=== PATIENT | female | born 1950 | race Caucasian/White ===

== ENCOUNTER → 2018-08-20 06:30 | Outpatient (CLI) | payer MEDICARE, OTHER, SELFPAY ==
[2016-08-10 11:42] VITALS: BMI 30.7
[2018-08-09 10:48] VITALS: BMI 27.4
--- NOTE | 2018-08-20 19:04 | STRESSREP ---
Stress Test Report Exercise myocardial perfusion stress test. 68-year-old lady with a history of coronary artery disease. Medications: Aspirin, Plavix, metoprolol, atorvastatin. Stress protocol: Resting EKG demonstrates normal sinus rhythm with a rate of 62 bpm normal intervals are noted resting blood pressure 160/82 mmHg. Patient exercised according to regular Anthony protocol for total duration of 6 minutes. The maximum heart rate attained was 150 bpm which was 100% of maximum predicted heart rate the maximum workload was 7 metabolic equivalents. At rest there were nonspecific ST-T wave changes noted at peak exercise upsloping ST changes only were noted with no meet the criteria for ischemia. Occasional premature atrial complexes were noted. During recovery there was noted to be mildly downsloping ST depression noted in leads II, III and aVF with mild ST elevation noted in lead aVR no chest pain was noted. The resting blood pressure was 160/82 with a peak blood pressure of 198/76. Rate pressure product was 29,700. No clinical angina was noted. Myocardial perfusion protocol. 11.6 mCi of technetium 99m sestamibi was injected at rest. The patient exercised for total duration of 6 minutes attaining 7 metabolic equivalents. At peak exercise 34.3 mCi of technetium 99m sestamibi was injected stress images were obtained stress and rest images were reconstructed and compared in the short axis vertical long horizontal long axis. Gated images were also obtained Perfusion SPECT analysis: Review of the stress images demonstrate normal uptake of tracer noted in all areas of the myocardium. The resting images similarly demonstrate normal uptake of tracer noted in all areas of the myocardium. No reversibility is noted to suggest ischemia. Gated SPECT analysis: Gated ejection fraction is noted to be 81%. Conclusion: Normal exercise myocardial perfusion stress test at a moderate workload. Preserved ejection fraction
== END ==
PROVIDERS: Family Provider Family Medicine; PCP Family Medicine; Referring Provider Internal Medicine Cardiovascular Disease; Visit Provider Internal Medicine Cardiovascular Disease
DX: I25.10 Atherosclerotic heart disease of native coronary artery without angina pectoris (principal); Z95.820 Peripheral vascular angioplasty status with implants and grafts
CPT/HCPCS: 78452; 93017; A9500; A4216

== ENCOUNTER → 2020-10-20 | Outpatient (CLI) | payer MEDICARE, OTHER, SELFPAY ==
[2016-08-10 11:42] VITALS: BMI 30.7
[2020-10-20 07:37] VITALS: BMI 24.7
[2020-10-20 11:52] LABS: AST(SGOT) 22 U/L (15-37); Alanine Aminotransfer ALT/SGPT 22 U/L (13-56); Albumin, Serum 3.8 g/dL (3.2-5.0); Alkaline Phosphatase 84 U/L (45-117); Bilirubin, Direct 0.23 mg/dL (0.00-0.30); Cholesterol 142 mg/dL (200); Globulin 3.3 g/dL (2.2-4.2); High Density Lipoprotein 65 mg/dL; Protein, Total 7.1 g/dL (6.4-8.2); Triglycerides 101 mg/dL; Very Low Density Lipoprotein 20 mg/dL (5-40)
== END | disposition home or self-care (01) ==
LOC: LABSPEC 11:09
PROVIDERS: PCP Family Medicine; Visit Provider Internal Medicine Cardiovascular Disease
DX: E78.00 Pure hypercholesterolemia, unspecified (principal)
CPT/HCPCS: 36415; 80061; 80076

== ENCOUNTER → 2020-12-09 09:33 | Outpatient (CLI) | payer MEDICARE, OTHER, SELFPAY ==
[2020-10-23 10:09] VITALS: BMI 30.7
[2020-12-09 09:00] VITALS: BMI 25.0
[2020-12-09 12:14] LABS: Absolute Lymphocyte Count 0.96 X10^3/uL (0.83-4.51); Absolute Neutrophil Count 4.3 X10^3/uL (2.0-7.7); Basophil# 0.05 X10^3/uL; Basophil% 0.8 % (0-1); Eosinophil# 0.14 X10^3/uL; Eosinophils% 2.3 % (0-5); Hematocrit 44.1 % (37-47); Hemoglobin 13.6 g/dL (12.0-15.0); Lymphocyte # 0.96 X10^3/ul (0.83-4.51); Lymphocyte % 15.9 % (19-41); Mean Corp Hgb Conc 30.8 g/dL (32-36); Mean Corpuscular Hgb 29.6 pg (27.0-32.0); Mean Corpuscular Volume 95.9 fL (81-99); Mean Platelet Vol. 10.7 fl (6.2-12.0); Monocyte# 0.54 X10^3/uL; Monocyte% 8.9 % (0-10); NRBC Flagged by Analyzer 0 % (0-5); Neutrophil # 4.33 X10^3/uL (2.7-7.7); Neutrophil % 71.8 % (47-70); Platelet Count 261 K/mm3 (150-450); RBC Distribution Width CV 13.1 % (11.6-14.6); RBC Distribution Width SD 46.5 fl (35.1-43.9)
[2020-12-09 12:30] LABS: Anion Gap 4 (5-15); BUN 20 mg/dL (7-18); BUN/Creat Ratio 25.7 RATIO (10-20); Calcium,Total 9.3 mg/dL (8.5-10.1); Chloride 107 mmol/L (98-107); Creatinine, Serum 0.78 mg/dL (0.55-1.02); EST Glomerular Filtration Rate 77 mL/min (>60); Est Glom Filt Rate - Afr Amer 93 mL/min (>60); Glucose 80 mg/dL (74-106); Potassium 4.4 mmol/L (3.5-5.1); Sodium Level 142 mmol/L (136-145)
== END ==
PROVIDERS: PCP Internal Medicine; Referring Provider Internal Medicine; Visit Provider Internal Medicine
DX: E78.2 Mixed hyperlipidemia (principal)
CPT/HCPCS: 36415; 80048; 85025

== ENCOUNTER → 2021-04-14 09:32 | Outpatient (CLI) | payer MEDICARE, OTHER, SELFPAY ==
[2020-10-23 10:09] VITALS: BMI 30.7
[2020-12-09 09:00] VITALS: BMI 25.0
--- NOTE | 2021-04-14 09:36 | BI_ITS ---
MAMMOGRAPHY - BILATERAL SCREENING REASON FOR EXAM: Female, 70 years old. Routine annual screening examination. PERTINENT HISTORY: Non-contributory. TECHNIQUE: Digital bilateral breast veronica (3D mammographic acquisition) in the CC and MLO projections. 2-D mediolateral oblique (MLO) and craniocaudad (CC) views of both breasts were obtained. CAD: Full Field Digital Mammography with Computer Added Detection was performed. COMPARISON: Comparison is made with prior examination of 04/13/2020. FINDINGS: Breast Composition: There are scattered areas of fibroglandular density. There are no dominant masses or suspicious calcifications. No other significant abnormalities are identified. There has been no significant change since the prior study. BI/SCRN MAMM (CAD)W/VERONICA BILAT IMPRESSION: Stable bilateral screening mammogram. Yearly follow-up mammogram recommended. (A) ASSESSMENT CATEGORY: BIRADS Category 1: Negative. A letter regarding these results will be sent to the patient by the facility within 30 days. Approximately 10% of breast cancers are not detected by mammography. A normal mammogram should not delay biopsy of a clinically suspicious abnormality. [id number] Electronically Signed: Amrik Dhillon MD at 10:23 EST , Service support ,
--- NOTE | 2021-04-14 09:55 | BD_ITS ---
STUDY: DUAL ENERGY X-RAY ABSORPTIOMETRY / DXA REASON FOR EXAM: Female, 70 years old. Post menopausal TECHNIQUE: Bone Mineral Density (BMD) measurements of lumbar spine and left hip were obtained. COMPARISON: None. FINDINGS: Lumbar Spine (L1-L4): g/cm2 (0.795) / T-score (-2.0) / Z-score (0.2) Findings are suggestive of osteopenia with a moderate fracture risk. Left Femur Total: g/cm2 (0.682) / T-score (-2.1) / Z-score (-0.5) Left Femoral Neck: g/cm2 (0.568) / T-score (-2.5) / Z-score (-0.6) BD/Dexa Bone Density Study IMPRESSION: The patient is considered osteopenic as outlined below according to World [employer] Organization (WHO) criteria with a high fracture risk. Reference Information: The T-score is the number of standard deviations above or below the standard which is normal for young adults at their peak bone mineral density. The World Health Organization (WHO) interprets the T-scores as follows: Above -1 Normal bone density Between -1 and -2.5 Osteopenia Equal to / or below -2.5 Osteoporosis As a practical clinical guideline, osteopenia may be graded as follows: Mild -1 through -1.5 Moderate -1.6 through -2.0 Severe -2.1 through -2.4 The Z-score is the number of standard deviations above or below age-matched controls. A Z-score of less than -1.5 would be considered abnormal. References: 1. NIH Osteoporosis and Related Bone Diseases www osteo.org 2. International Society for Clinical Densitometry www iscd.org 3. National Osteoporosis Foundation www nof.org Electronically Signed: Amrik Dhillon MD at 14:39 EST , Service support ,
== END ==
PROVIDERS: PCP Internal Medicine; Referring Provider Internal Medicine; Visit Provider Internal Medicine
DX: Z12.31 Encounter for screening mammogram for malignant neoplasm of breast (principal); Z78.0 Asymptomatic menopausal state; M85.80 Other specified disorders of bone density and structure, unspecified site
CPT/HCPCS: 77063; 77067; 77080

== ENCOUNTER → 2021-05-27 | Outpatient (CLI) | payer MEDICARE, OTHER, SELFPAY ==
[2020-10-23 10:09] VITALS: BMI 30.7
== END | disposition home or self-care (01) ==
PROVIDERS: PCP Internal Medicine; Visit Provider Nurse Practitioner Family
DX: U07.1 COVID-19 (principal)
CPT/HCPCS: 87635; U0003; U0005

== ENCOUNTER 2021-08-25 10:20 | Outpatient (CLI) | payer MEDICARE, OTHER, SELFPAY ==
[2020-10-23 10:09] VITALS: BMI 30.7
[2021-08-25 12:31] LABS: AST(SGOT) 21 U/L (15-37); Alanine Aminotransfer ALT/SGPT 26 U/L (13-56); Albumin, Serum 3.9 g/dL (3.2-5.0); Alkaline Phosphatase 88 U/L (45-117); Bilirubin, Direct 0.26 mg/dL (0.00-0.30); Cholesterol 133 mg/dL (200); Globulin 3.4 g/dL (2.2-4.2); High Density Lipoprotein 58 mg/dL; Protein, Total 7.3 g/dL (6.4-8.2); Triglycerides 61 mg/dL; Very Low Density Lipoprotein 12 mg/dL (5-40)
== END 2021-08-25 23:59 | disposition home or self-care (01) ==
LOC: BIMLAB 10:24
PROVIDERS: PCP Internal Medicine; Referring Provider Internal Medicine Cardiovascular Disease; Visit Provider Internal Medicine Cardiovascular Disease
DX: E78.00 Pure hypercholesterolemia, unspecified (principal); E78.2 Mixed hyperlipidemia
CPT/HCPCS: 36415; 80061; 80076

== ENCOUNTER 2021-08-31 10:26 | Outpatient (CLI) | payer MEDICARE, OTHER, SELFPAY ==
[2020-10-23 10:09] VITALS: BMI 30.7
[2021-08-31 12:34] LABS: Vitamin D,25 Hydroxy 54.4 ng/mL
[2021-08-31 12:39] LABS: Anion Gap 2 (5-15); BUN 16 mg/dL (7-18); BUN/Creat Ratio 21.1 RATIO (10-20); Calcium,Total 9.8 mg/dL (8.5-10.1); Chloride 110 mmol/L (98-107); Creatinine, Serum 0.76 mg/dL (0.55-1.02); EST Glomerular Filtration Rate 80 mL/min (>60); Est Glom Filt Rate - Afr Amer 96 mL/min (>60); Glucose 93 mg/dL (74-106); Potassium 4.4 mmol/L (3.5-5.1); Sodium Level 141 mmol/L (136-145)
== END 2021-08-31 23:59 | disposition home or self-care (01) ==
LOC: BIMLAB 10:27
PROVIDERS: PCP Internal Medicine; Referring Provider Internal Medicine; Visit Provider Internal Medicine
DX: M85.80 Other specified disorders of bone density and structure, unspecified site (principal)
CPT/HCPCS: 36415; 80048; 82306

== ENCOUNTER 2022-05-09 11:54 | Emergency (ER) | payer MEDICARE, OTHER, SELFPAY ==
[2020-10-23 10:09] VITALS: BMI 30.7
[2022-05-09 11:55] VITALS: BP 156/112; PULSE 72; RESP 18; TEMP 36.4; O2SAT 96; BMI 26.6
[2022-05-09 12:29] VITALS: BP 152/83; PULSE 64; RESP 16; O2SAT 95
--- NOTE | 2022-05-09 12:57 | EDS_ITS ---
HPI History of Present Illness Chief Complaint: Chest Pain Informant: patient Onset/Context/Timing Onset: Days (5) Activity at onset: gradual Timing: Continuous Quality: Positive for Aching Location: Substernal and Right Chest Worsened By: Movement of Torso and Coughing Relieved By: Nothing Associated Symptoms: Positive for Diaphoresis, Cough, Fever and Lightheadedness; Negative for Nausea, Vomiting, Dyspnea, Acid Reflux or Palpitations Narrative Narrative: Presents with right-sided chest pain that began 5 days ago. Patient describes the pain as aching. Patient states pain is over the right side of her chest and into her back. Patient states it is worse with coughing and movement. Patient states nothing seems to help with it. Patient states she woke up in a sweat today. Patient admits to a recent cough. Patient states she has had a fever couple days ago but denies any fevers currently. Patient also admits to some lightheadedness a few days ago but currently denies any lightheadedness. Patient denies any nausea or vomiting. Patient denies any palpitations or reflux symptoms. CVD Risk Factors: Positive for Hypercholesterolemia and Family History 1' </=55; Negative for Hypertension, Diabetes or Smoking PE Risk Factors: Negative for Recent Travel/Surgery, Recent Immobilization, Prior DVT or PE, Cancer or OCP + Smoking + >/=35 PFSH PFSH Medical History Atherosclerotic heart disease of [place] coronary artery without angina pectoris Coronary artery disease Female stress incontinence Health care maintenance Hyperlipidemia Hypertension Osteoarthritis of left knee Osteopenia Vaginal vault prolapse after hysterectomy Home Medications calcium carbonate 600 mg-vitamin D3 5 mcg (200 unit) tablet 1 ea PO BID 07/26/16 [History Last Taken Unknown] acetaminophen 500 mg tablet 1,000 mg PO Q8 PRN Pain 08/10/17 [History Last Taken Unknown] aspirin 81 mg tablet,delayed release 81 mg PO DAILY 10/15/19 [History Last Taken Unknown] atorvastatin 80 mg tablet 80 mg PO QHS #90 tabs 06/14/21 [Rx Last Taken Unknown] clopidogrel 75 mg tablet 75 mg PO DAILY #90 tabs 06/14/21 [Rx Last Taken Unknown] metoprolol tartrate 25 mg tablet 25 mg PO BID #180 tabs 06/14/21 [Rx Last Taken Unknown] Allergy/AdvReac Type Severity Reaction Status Date / Time No Known Allergies Allergy Verified 05/09/22 11:55 Family History Father CAD (coronary artery disease) CVA (cerebral vascular accident) Surgical History History of coronary artery stent placement (07/30/16) History of hysterectomy History of left knee replacement Hx of cataract surgery Social History Smoking Status: Never smoker alcohol intake: never substance use type: does not use caffeine: Yes Type: coffee Number of servings: 2 what type of physical activity do you participate in: walking frequency: 3-4 times per week duration: 30-45 minutes/day seatbelt use: always do you feel safe at home: Yes ROS ROS ED Constitutional Constitutional ED: Denies chills or fever(s) Eyes Eyes: Denies blurry vision or change in vision ENT ENT ED: Denies rhinorrhea or sore throat Cardiovascular Cardiovascular: Reports chest pain; Denies palpitations Respiratory/Chest Respiratory/Chest: Reports cough; Denies dyspnea Gastrointestinal Gastrointestinal: Denies abdominal pain, nausea or vomiting Genitourinary Genitourinary ED: Denies dysuria or hematuria Musculoskeletal Musculoskeletal: Reports back pain; Denies neck pain Integumentary Denies abscess or rash Neurologic Neurologic: Reports headache(s); Denies weakness Allergic/Immunologic Allergic/Immunologic ED: Denies mouth swelling or urticaria EXAM Physical Exam Const Vital Signs: 05/09/22 11:55 05/09/22 12:29 05/09/22 12:29 Temperature 97.6 F L Temperature Source Temporal Pulse Rate 72 64 Respiratory Rate 18 16 Respiratory Effort Normal Blood Pressure 156/112 H 152/83 H Blood Pressure Mean 126 106 Pulse Ox 96 95 Oxygen Delivery Method Room Air Room Air 05/09/22 13:28 05/09/22 14:05 Temperature Temperature Source Pulse Rate 54 L Respiratory Rate 20 H Respiratory Effort Blood Pressure 133/76 H Blood Pressure Mean 95 Pulse Ox 92 Oxygen Delivery Method Room Air Room Air Positive well nourished and well developed General Appearance ED: well developed and NAD HEENT normocephalic and atraumatic Eyes PERRL and EOMs intact bilaterally Neck supple and no JVD Chest Wall palpation of chest normal Resp normal respiratory effort and clear to auscultation bilaterally Effort and Inspection: Negative for respiratory distress Cardio regular rate, regular rhythm and no murmurs GI normal to inspection, nondistended, normoactive bowel sounds, soft to palpation, non-tender and non-distended Extremity normal to inspection General Extremety ED: Negative for edema or tenderness General Extremity: Negative for edema Neuro oriented x3, CN's II-XII intact bilaterally and no sensory deficits noted Sensorium / Orientation: awake and alert Motor Exam: strength 5/5 throughout Psych mental status grossly normal Heart Score History: Slightly/Non-Suspicious ECG: Nonspecific Repolarization Age: >/= 65 years Risk Factors: >/= 3 Risk Factors or History of CAD Troponin: </= Normal Limit Score: 5 MDM MDM MDM Narrative Medical decision making narrative: Patient was given aspirin here. EKG was obtained. On my interpretation, it showed a normal sinus rhythm with a rate of 63. IA interval, QRS interval, and QTc intervals were all normal. [place] was normal. There are nonspecific ST-T wave changes. Portable 1 view chest x-ray was obtained. On my interpretation, lung rolon are clear. There is normal cardiac silhouette. Bony thorax is normal. There is no acute process noted. Radiologist also interpreted the x- ray and agrees. CBC was within normal limits. Basic metabolic profile was within normal limits. High-sensitivity troponin was normal at 13. Patient was advised of her findings. Patient was instructed to follow-up with her primary care physician in 5 to 7 days for further evaluation. Patient understood and was agreeable with the plan. All questions were answered. Lab Data Labs: Laboratory Results - last 24 hr 05/09/22 05/09/22 13:23 13:23 WBC 4.0 L RBC 4.64 Hgb 13.8 Hct 44.1 MCV 95.0 MCH 29.7 MCHC 31.3 L RDW Std Deviation 46.9 H RDW Coeff of Gerhard 13.3 Plt Count 209 MPV 10.3 Immature Gran % (Auto) 0.300 Neut % (Auto) 63.6 Lymph % (Auto) 21.8 [place] % (Auto) 13.0 H Eos % (Auto) 0.8 Baso % (Auto) 0.5 Absolute Neuts (auto) 2.6 Absolute Lymphs (auto) 0.87 Nucleated RBC % 0 Sodium 140 Potassium 4.2 Chloride 104 Carbon Dioxide 32.0 Anion Gap 4 L BUN 11 Creatinine 0.77 Estim Creat Clear Calc 42.62 Est GFR (MDRD) Af Amer 95 Est GFR (MDRD) Non-Af 78 BUN/Creatinine Ratio 14.3 Glucose 96 Calcium 9.6 Troponin I High Sens 13 Radiography Diagnostic Testing: Clinical Impression(s) from Imaging Studies Chest X-Ray 05/09/22 13:04 IMPRESSION: Hyperinflation. The lungs are clear. Electronically Signed: Amrik Dhillon MD at 14:15 EST , EKG Initial EKG: Attestation: I personally reviewed and interpreted this EKG as follows: Interpretation: Sinus Rhythm (63) and Non-Specific ST Changes Prior EKG tracings: available for review Prior: Unchanged (08/20/2018) Discharge Plan Triage Chief Complaint: Chest Pain Other Complaint: General Illness ED Provider: Marlon Waddell Dx/Rx/DC Orders Clinical Impression: Right-sided chest pain, Hypertension Instructions: ED Chest Pain, Uncertain Cause Prescriptions: No Action acetaminophen 500 MG tablet 1,000 mg PO Q8 PRN (Reason: Pain) aspirin 81 mg tablet,delayed release (DR/EC) 81 mg PO DAILY calcium carbonate-vitamin D3 1 EACH tablet 1 ea PO BID metoprolol tartrate 25 mg tablet 25 mg PO BID Qty: 180 3RF atorvastatin 80 mg tablet 80 mg PO QHS Qty: 90 3RF clopidogrel 75 mg tablet 75 mg PO DAILY Qty: 90 3RF Primary Care Provider: Skip Lugo Referrals: Skip Lugo MD [Primary Care Provider] - 5-7 Days Disposition Disposition: Home, Self Care
--- NOTE | 2022-05-09 13:04 | RAD_ITS ---
STUDY: X-RAY CHEST REASON FOR EXAM: Female, 72 years old. Cough and fever. Chest pain. TECHNIQUE: Single AP portable view of the chest. COMPARISON: None. FINDINGS: EKG electrodes are seen. Hyperinflation. The lungs are clear. There is no demonstrated pleural abnormality. Normal size heart. Normal mediastinum and tarik. Normal visualized pulmonary arteries. There is atherosclerotic calcification of the aortic arch with tortuosity. There are diffuse degenerative changes of the visualized thoracic spine. There is degenerative osteoarthritis of the bilateral shoulders. There is no demonstrated abnormality of the visualized soft tissue structures of the upper abdomen. RAD/Chest 1 View (Portable) IMPRESSION: Hyperinflation. The lungs are clear. Electronically Signed: Amrik Dhillon MD at 14:15 EST ,
--- NOTE | 2022-05-09 13:15 | EKG12_ITS ---
Test Reason : cp Blood Pressure : / mmHG Vent. Rate : 063 BPM Atrial Rate : 063 BPM P-R Int : 140 ms QRS Dur : 084 ms QT Int : 382 ms P-R-T Axes : 050 -07 -23 degrees QTc Int : 390 ms Sinus rhythm with Premature atrial complexes Nonspecific ST and T wave abnormality Abnormal ECG Confirmed by FABIANO TRISTAN, GARO ([id number]), news editor DIONY MANUEL ([id number]) on 05/11/2022 11:11:29 AM Referred By: Confirmed By:GARO MARIO MD
[2022-05-09] MEDS: Aspirin 81 MG TAB.CHEW 324 MG PO (13:26)
[2022-05-09 13:28] LABS: Absolute Lymphocyte Count 0.87 X10^3/uL (0.83-4.51); Absolute Neutrophil Count 2.6 X10^3/uL (2.0-7.7); Basophil# 0.02 X10^3/uL; Basophil% 0.5 % (0-1); Eosinophil# 0.03 X10^3/uL; Eosinophils% 0.8 % (0-5); Hematocrit 44.1 % (37-47); Hemoglobin 13.8 g/dL (12.0-15.0); Lymphocyte # 0.87 X10^3/ul (0.83-4.51); Lymphocyte % 21.8 % (19-41); Mean Corp Hgb Conc 31.3 g/dL (32-36); Mean Corpuscular Hgb 29.7 pg (27.0-32.0); Mean Platelet Vol. 10.3 fl (6.2-12.0); Monocyte# 0.52 X10^3/uL; NRBC Flagged by Analyzer 0 % (0-5); Neutrophil # 2.55 X10^3/uL (2.7-7.7); Neutrophil % 63.6 % (47-70); Platelet Count 209 K/mm3 (150-450); RBC Distribution Width CV 13.3 % (11.6-14.6); RBC Distribution Width SD 46.9 fl (35.1-43.9); Red Blood Count 4.64 M/mm3 (4.2-5.4)
[2022-05-09 13:47] LABS: Anion Gap 4 (5-15); BUN 11 mg/dL (7-18); BUN/Creat Ratio 14.3 RATIO (10-20); Calcium,Total 9.6 mg/dL (8.5-10.1); Chloride 104 mmol/L (98-107); Creatinine, Serum 0.77 mg/dL (0.55-1.02); EST Glomerular Filtration Rate 78 mL/min (>60); Est Glom Filt Rate - Afr Amer 95 mL/min (>60); Estimated Creatinine Clearance 42.62 ml/min; Glucose 96 mg/dL (74-106); Potassium 4.2 mmol/L (3.5-5.1); Sodium Level 140 mmol/L (136-145); Troponin-I HS 13 pg/mL (3.0-54.0)
[2022-05-09 14:05] VITALS: BP 133/76; PULSE 54; RESP 20; O2SAT 92
[2022-05-09 15:29] VITALS: PULSE 69; RESP 16; O2SAT 98
== END 2022-05-09 15:29 | disposition home or self-care (01) ==
PROVIDERS: Emergency Provider Emergency Medicine; PCP Internal Medicine; Visit Provider Emergency Medicine
DX: R07.9 Chest pain, unspecified (principal); I10 Essential (primary) hypertension; I25.10 Atherosclerotic heart disease of native coronary artery without angina pectoris; Z79.82 Long term (current) use of aspirin; Z79.899 Other long term (current) drug therapy; Z95.5 Presence of coronary angioplasty implant and graft
CPT/HCPCS: 71045; 80048; 84484; 85025; 93005; 99285; A4216

== ENCOUNTER → 2022-09-14 | Outpatient (CLI) | payer MEDICARE, OTHER, SELFPAY ==
[2020-10-23 10:09] VITALS: BMI 30.7
[2022-09-14 12:44] LABS: Absolute Lymphocyte Count 0.98 X10^3/uL (0.83-4.51); Absolute Neutrophil Count 3.8 X10^3/uL (2.0-7.7); Basophil# 0.06 X10^3/uL; Basophil% 1.1 % (0-1); Eosinophil# 0.09 X10^3/uL; Eosinophils% 1.7 % (0-5); Lymphocyte # 0.98 X10^3/ul (0.83-4.51); Lymphocyte % 18.2 % (19-41); Mean Corp Hgb Conc 31.1 g/dL (32-36); Mean Corpuscular Hgb 30.1 pg (27.0-32.0); Mean Corpuscular Volume 96.8 fL (81-99); Mean Platelet Vol. 11.1 fl (6.2-12.0); Monocyte# 0.43 X10^3/uL; NRBC Flagged by Analyzer 0 % (0-5); Neutrophil % 70.6 % (47-70); Platelet Count 258 K/mm3 (150-450); RBC Distribution Width CV 13.3 % (11.6-14.6); RBC Distribution Width SD 47.3 fl (35.1-43.9); Red Blood Count 4.65 M/mm3 (4.2-5.4); White Blood Count 5.4 K/mm3 (4.4-11.0)
[2022-09-14 13:09] LABS: AST(SGOT) 25 U/L (15-37); Alanine Aminotransfer ALT/SGPT 26 U/L (13-56); Albumin, Serum 3.9 g/dL (3.2-5.0); Alkaline Phosphatase 84 U/L (45-117); Bilirubin, Direct 0.26 mg/dL (0.00-0.30); Cholesterol 143 mg/dL (200); Globulin 3.3 g/dL (2.2-4.2); High Density Lipoprotein 56 mg/dL; Protein, Total 7.2 g/dL (6.4-8.2); Triglycerides 70 mg/dL; Very Low Density Lipoprotein 14 mg/dL (5-40)
[2022-09-14 13:15] LABS: Vitamin D,25 Hydroxy 52.4 ng/mL
[2022-09-14 13:19] LABS: Anion Gap 3 (5-15); BUN 18 mg/dL (7-18); Chloride 106 mmol/L (98-107); Creatinine, Serum 0.82 mg/dL (0.55-1.02); EST Glomerular Filtration Rate 73 mL/min (>60); Est Glom Filt Rate - Afr Amer 88 mL/min (>60); Glucose 85 mg/dL (74-106); Potassium 4.5 mmol/L (3.5-5.1); Sodium Level 140 mmol/L (136-145)
== END | disposition home or self-care (01) ==
LOC: BIMLAB 09:06
PROVIDERS: Nurse Practitioner Gerontology; PCP Internal Medicine; Referring Provider Internal Medicine; Visit Provider Internal Medicine
DX: I10 Essential (primary) hypertension (principal); E78.2 Mixed hyperlipidemia; I25.10 Atherosclerotic heart disease of native coronary artery without angina pectoris; M85.80 Other specified disorders of bone density and structure, unspecified site
CPT/HCPCS: 36415; 80048; 80061; 80076; 82306; 85025

== ENCOUNTER → 2022-09-28 | Outpatient (CLI) | payer MEDICARE, OTHER, SELFPAY ==
[2020-10-23 10:09] VITALS: BMI 30.7
--- NOTE | 2022-09-28 09:40 | BI_ITS ---
MAMMOGRAPHY - BILATERAL SCREENING REASON FOR EXAM: Female, 72 years old. Routine annual screening examination. PERTINENT HISTORY: Non-contributory. TECHNIQUE: Digital bilateral breast veronica (3D mammographic acquisition) in the CC and MLO projections. 2-D mediolateral oblique (MLO) and craniocaudad (CC) views of both breasts were obtained. CAD: Full Field Digital Mammography with Computer Added Detection was performed. COMPARISON: Comparison is made with prior examination dated April 14, 2021. FINDINGS: Breast Composition: There are scattered areas of fibroglandular density. There are no dominant masses or suspicious calcifications. No other significant abnormalities are identified. There has been no significant change since the prior study. BI/SCRN MAMM (CAD)W/VERONICA BILAT IMPRESSION: Stable bilateral screening mammogram. Yearly follow-up mammogram recommended. (A) ASSESSMENT CATEGORY: BIRADS Category 1: Negative. A letter regarding these results will be sent to the patient by the facility within 30 days. Approximately 10% of breast cancers are not detected by mammography. A normal mammogram should not delay biopsy of a clinically suspicious abnormality. [id number] Electronically Signed: Amrik Dhillon MD at 10:46 EDT ,
== END | disposition home or self-care (01) ==
LOC: OPBI 09:39
PROVIDERS: PCP Internal Medicine; Referring Provider Internal Medicine; Visit Provider Internal Medicine
DX: Z12.31 Encounter for screening mammogram for malignant neoplasm of breast (principal)
CPT/HCPCS: 77063; 77067

== ENCOUNTER → 2022-10-20 | Outpatient (CLI) | payer MEDICARE, OTHER, SELFPAY ==
[2020-10-23 10:09] VITALS: BMI 30.7
--- NOTE | 2022-10-20 12:44 | ECHOCS_ITS ---
Reason For Study: Murmur Procedure This was a 2D Doppler, Color Flow transthoracic echocardiogram. The study was technically difficult. Contrast injection was performed. Exam performed in department. Left Ventricle Normal LV size. Left ventricular systolic function is normal. The estimated ejection fraction is 65 %. No regional wall motion abnormalities noted. Right Ventricle Normal RV size. Normal systolic function. Atria Normal left atrium. Normal right atrium. Mitral Valve Normal mitral valve. Tricuspid Valve Normal tricuspid valve. Mild tricuspid valve insufficiency. Pulmonary artery systolic pressure is 30 mmHg. Aortic Valve The aortic valve is not well visualized. Pulmonic Valve Normal pulmonic valve. Great Vessels Normal aortic root. The pulmonary artery is normal size. Normal inferior vena cava. Pericardium/Pleural No pericardial effusion. Medication 22 gauge I.V. with prn adaptor inserted into right arm. Diluted definity 1.5ml given slow IV push to enhance endocardial definition. MMode/2D Measurements & Calculations LVIDd: 4.1 cm IVSd: 1.3 cm Ao root diam: 3.6 cm LVIDs: 2.6 cm LVPWd: 0.99 cm LA dimension: 4.4 cm FS: 38.1 % LAV(MOD-sp4): 76.4 ml LA A4 area: 23.6 cm2 Time Measurements MV dec time: 0.16 sec Doppler Measurements & Calculations MV E max flash: 53.0 cm/sec Lat Peak E' Flash: 6.0 cm/sec Med Peak E' Flash: 5.7 cm/sec MV A max flash: 54.8 cm/sec E/E' lat: 8.9 E/E' med: 9.3 MV E/A: 0.97 MV V2 max: 83.4 cm/sec MV P1/2t max flash: 85.7 cm/sec Ao V2 max: 108.1 cm/sec MV max P.8 mmHg MV P1/2t: 66.8 msec Ao max P.7 mmHg MV V2 mean: 31.1 cm/sec MV dec slope: 375.6 cm/sec2 Ao V2 mean: 73.5 cm/sec MV mean P.53 mmHg Ao mean P.5 mmHg MV V2 VTI: 25.6 cm MVA(P1/2t): 3.3 cm2 Ao V2 VTI: 24.8 cm AV (velocity ratio): 0.93 LV V1 max: 92.4 cm/sec PA V2 max: 85.2 cm/sec TR max flash: 264.0 cm/sec LV V1 max P.4 mmHg PA V2 mean: 57.6 cm/sec TR max P.9 mmHg LV V1 mean P.8 mmHg LV V1 mean: 62.3 cm/sec LV V1 VTI: 23.0 cm ECHO/Echo Complete W/ Contrast Interpretation Summary Normal LV size. Left ventricular systolic function is normal. The estimated ejection fraction is 65 %. Pulmonary artery systolic pressure is 30 mmHg. Contrast injection was performed. Ordering Physician: Jazmine Roberts Referring Physician: Skip Lugo Performed By: Sam Carmona RCS
== END | disposition home or self-care (01) ==
PROVIDERS: PCP Internal Medicine; Referring Provider Nurse Practitioner Gerontology; Visit Provider Nurse Practitioner Gerontology
DX: R01.1 Cardiac murmur, unspecified (principal)
CPT/HCPCS: 93306; Q9957; A4216; C8929

== ENCOUNTER 2023-01-31 06:16 | Day surgery (SDC) | payer MEDICARE, OTHER, SELFPAY ==
[2020-10-23 10:09] VITALS: BMI 30.7
--- NOTE | 2023-01-31 | COLBX_PTH ---
PATIENT: KING BLANCO LOC: EN U#:[id number] AGE/SX: 72/F ROOM: RE01/31/[address]: Dr. Daniel Mata MD : [id number] BED: DIS: 01/31/2023 SPEC #: [id number] RECD: 01/31/23 11:47 STATUS: WILLY REKelsey #: [id number] CARLOS: 01/31/23 00:[address]: Daniel Mata DEPT: SURGICAL PATHOLOGY RECD BY: John Nunez ENTERED: 01/31/23 11:47 SP TYPE: COLON BX OTHR DR: Dr. Skip Lugo MD Tissues: Cecum, NOS Procedures: Surgery Specimen Level IV HEADER OPERATION: Colonoscopy - open access PRE-OP DIAGNOSIS: Screening TISSUE SUBMITTED: Cecal mass/lipoma biopsy MICROSCOPIC DIAGNOSIS Cecal mass/lipoma, biopsy: A fragment of small intestinal mucosa, no pathologic diagnosis. See comment. SJ:demetrio 02/01/2023 COMMENT Changes consistent with lipoma are not seen. Correlation with clinical, endoscopic findings and appropriate follow up are necessary. MICROSCOPIC DESCRIPTION Slides are reviewed. GROSS DESCRIPTION Received in fixative is one container labeled with the patient's name and designated cecal mass/lipoma biopsy. The specimen consists of one irregular fragment of light kramer soft tissue that measures 0.4 x 0.3 x 0.1 cm. The specimen is totally submitted in one cassette. / GUSTAVO:demetrio 01/31/2023 TC:4 CPT: 52184
[2023-01-31] MEDS: Lactated Ringers 1,000 ML 15 ML IV (06:56)
[2023-01-31 06:58] VITALS: BP 137/72; PULSE 55; RESP 18; TEMP 36.6; O2SAT 97; BMI 26.9
--- NOTE | 2023-01-31 06:58 | HP.PCM_ITS ---
[facility] - General General Date of Admission: 02/11/20 Date of Service: 01/31/23 Chief Complaint: Screening for intestinal cancer HPI Narrative KING BLANCO, is a 72 F who presents for screening colonoscopy today. Previous 1 was in 2012. She denies any symptoms. No abdominal pain bright red blood per rectum or melena. She presents via open access today. She does take aspirin and clopidogrel therapy. She held her clopidogrel for 2 days. [facility] Medical History (Updated 01/26/23 @ 14:35 by Michelle Beasley) Arthritis Atherosclerotic heart disease of [place] coronary artery without angina pectoris Cardiology follow-up encounter Colon cancer screening Coronary artery disease Female stress incontinence Health care maintenance High cholesterol History of echocardiogram (~2022) History of stress test (~2018) Hyperlipidemia Hypertension Non-smoker Osteoarthritis of left knee Osteopenia Vaginal vault prolapse after hysterectomy (~2016) Wears glasses Home Medications calcium carbonate 600 mg-vitamin D3 5 mcg (200 unit) tablet 1 ea PO BID 07/26/16 [History Last Taken Unknown] acetaminophen 500 mg tablet 1,000 mg PO Q8 PRN Pain 08/10/17 [History Last Taken Unknown] aspirin 81 mg tablet,delayed release 81 mg PO DAILY 10/15/19 [History Last Taken Unknown] atorvastatin 80 mg tablet 80 mg PO QHS #90 tabs 06/09/22 [Rx Last Taken Unknown] clopidogrel 75 mg tablet 75 mg PO DAILY #90 tabs 06/09/22 [Rx Last Taken Unknown] metoprolol tartrate 25 mg tablet 25 mg PO BID #180 tabs 06/09/22 [Rx Last Taken 01/31/23] alendronate 70 mg tablet (Fosamax) 70 mg PO QWEEK #20 tabs 10/05/22 [Rx Last Taken Unknown] amoxicillin 500 mg tablet 2,000 mg PO .one PRN procedures 01/31/23 [History Last Taken 01/31/23] Allergy/AdvReac Type Severity Reaction Status Date / Time No Known Allergies Allergy Verified 01/26/23 14:23 Family History (Updated 12/26/22 @ 13:49 by Steffi Valenzuela) Father CAD (coronary artery disease) CVA (cerebral vascular accident) Colon polyps Sister Colon polyps Surgical History (Updated 01/26/23 @ 14:35 by Michelle Beasley) History of cardiac catheterization (~2016) History of coronary artery stent placement (07/30/16) History of hysterectomy History of left knee replacement Hx of cataract surgery Hx of colonoscopy Social History Smoking Status: Never smoker alcohol intake: never substance use type: does not use caffeine: Yes Type: coffee Number of servings: 2 what type of physical activity do you participate in: walking frequency: 3-4 times per week duration: 30-45 minutes/day seatbelt use: always do you feel safe at home: Yes ROS Constitutional Constitutional: Reports systems reviewed and no addt'l complaints, except as documented Cardiovascular Cardiovascular: Denies chest pain Respiratory/Chest Respiratory/Chest: Denies shortness of breath at rest Gastrointestinal Gastrointestinal: Denies abdominal pain, change in bowel habits, hematochezia or melena Physical Exam Const alert, oriented x3 and no apparent distress General Appearance: cooperative and comfortable Eyes General Eye: normal appearance of both eyes Neck General: normal visual inspection Chest inspection of chest normal Resp Effort and Inspection: able to speak in complete sentences and symmetric chest movement Auscultation: clear to auscultation bilaterally Cardio regular rate and regular rhythm GI soft to palpation, non-tender and non-distended Extremity no calf tenderness Neuro oriented x3 Psych thought process normal Assessment & Plan Assessment/Plan (1) Colon cancer screening: PLAN: The patient presents via open access today for screening colonoscopy with possible biopsy or polypectomy as indicated. She is aware of the technique, benefit, risk, alternatives. She has had an opportunity to ask and have questions answered. We will proceed as noted. Daniel Mata M.D., F.A.C.S.
[2023-01-31 08:20] VITALS: BP 137/72; BP 92/52; PULSE 71; RESP 16; TEMP 36.2; O2SAT 95
--- NOTE | 2023-01-31 08:21 | OP.COLON_ITS ---
Patient Name: Paola Mayorga Procedure Date: 01/31/2023 7:55 AM Date of : 1950 Age: 72 Procedure: Colonoscopy Indications: Screening for colorectal malignant neoplasm Providers: Daniel Mata MD Referring MD: Skip Lugo MD Medicines: See the Anesthesia note for documentation of the administered medications Patient Profile: Last Colonoscopy: 2012. Complications: No immediate complications. Procedure: Pre-Anesthesia Assessment: - Prior to the procedure, a History and Physical was performed, and patient medications and allergies were reviewed. The patient's tolerance of previous anesthesia was also reviewed. The risks and benefits of the procedure and the sedation options and risks were discussed with the patient. All questions were answered, and informed consent was obtained. Prior Anticoagulants: The patient has taken Plavix (clopidogrel), last dose was 2 days prior to procedure. ASA Grade Assessment: II - A patient with mild systemic disease. After reviewing the risks and benefits, the patient was deemed in satisfactory condition to undergo the procedure. After I obtained informed consent, the scope was passed under direct vision. Throughout the procedure, the patient's blood pressure, pulse, and oxygen saturations were monitored continuously. The colonoscope was introduced through the anus and advanced to the cecum, identified by appendiceal orifice and ileocecal valve. The colonoscopy was performed without difficulty. The patient tolerated the procedure well. The quality of the bowel preparation was good. The ileocecal valve and the appendiceal orifice were photographed. Scope In: 8:02:13 AM Scope Withdrawal Time 0 hours 9 minutes 22 seconds Scope Out: 8:15:59 AM Total Procedure Duration Time 0 hours 13 minutes 46 seconds Findings: The digital rectal exam findings include non-thrombosed external hemorrhoids, non-thrombosed internal hemorrhoids and internal hemorrhoids that prolapse with straining, but spontaneously regress to the resting position (Grade II). There was a medium-sized lipoma, 17 mm in diameter, in the cecum. Biopsies were taken with a cold forceps for histology. Multiple diverticula were found in the sigmoid colon. Impression: - Non-thrombosed external hemorrhoids, non-thrombosed internal hemorrhoids and internal hemorrhoids that prolapse with straining, but spontaneously regress to the resting position (Grade II) found on digital rectal exam. - Medium-sized lipoma in the cecum. Biopsied. - Diverticulosis in the sigmoid colon. Recommendation: - Discharge patient to home. - Resume previous diet. - Continue present medications. - Repeat colonoscopy in 10 years for screening purposes. - Telephone my office for pathology results in 1 week. Procedure Code(s): --- Professional --- 78989, Colonoscopy, flexible; with biopsy, single or multiple Diagnosis Code(s): --- Professional --- Z12.11, Encounter for screening for malignant neoplasm of colon K64.1, Second degree hemorrhoids K64.4, Residual hemorrhoidal skin tags D17.5, Benign lipomatous neoplasm of intra-abdominal organs K57.30, Diverticulosis of large intestine without perforation or abscess without bleeding CPT copyright 2021 [employer]. All rights reserved. The codes documented in this report are preliminary and upon service car driver review may be revised to meet current compliance requirements. Daniel Mata MD 01/31/2023 8:21:07 AM This report has been signed electronically. Number of Addenda: 0 Note Initiated On: 01/31/2023 7:55 AM
--- NOTE | 2023-01-31 08:22 | OP.CCLET_ITS ---
01/31/2023 Skip Lugo MD [address] [place] [address] [place] [address] Re : Colonoscopy procedure for Paola Magallonrhonda Dear Dr. Lugo This procedure was performed on Tuesday, January 31, 2023. My impressions and recommendations are as follows: Impressions : - Non-thrombosed external hemorrhoids, non-thrombosed internal hemorrhoids and internal hemorrhoids that prolapse with straining, but spontaneously regress to the resting position (Grade II) found on digital rectal exam. - Medium-sized lipoma in the cecum. Biopsied. - Diverticulosis in the sigmoid colon. Recommendations : - Discharge patient to home. - Resume previous diet. - Continue present medications. - Repeat colonoscopy in 10 years for screening purposes. - Telephone my office for pathology results in 1 week. My findings are described in the full procedure note, which is enclosed. If I can be of further assistance, please feel free to contact me at Doctor phone number(s): Work: . Sincerely, Daniel Mata MD 01/31/2023 8:21:07 AM This report has been signed electronically.
[2023-01-31 08:25] VITALS: BP 137/72; BP 94/60; PULSE 67; RESP 16; O2SAT 95
[2023-01-31 08:30] VITALS: BP 100/53; BP 137/72; PULSE 64; RESP 16; O2SAT 95
[2023-01-31 08:35] VITALS: BP 101/60; BP 137/72; PULSE 62; RESP 16; TEMP 36.6; O2SAT 96
[2023-01-31 08:48] VITALS: BP 137/72
== END 2023-01-31 08:56 | disposition home or self-care (01) ==
LOC: EN 06:17 → AC 06:18
PROVIDERS: PCP Internal Medicine; Referring Provider Internal Medicine; Visit Provider Surgery
PROC: 0DJD8ZZ Inspection of Lower Intestinal Tract, Via Natural or Artificial Opening Endoscopic (ICD-10-PCS; CPT 45378; principal; 2023-01-31 07:25)
DX: Z12.11 Encounter for screening for malignant neoplasm of colon (principal); K64.1 Second degree hemorrhoids; K64.4 Residual hemorrhoidal skin tags; D17.5 Benign lipomatous neoplasm of intra-abdominal organs; K57.30 Diverticulosis of large intestine without perforation or abscess without bleeding; E78.00 Pure hypercholesterolemia, unspecified; I25.10 Atherosclerotic heart disease of native coronary artery without angina pectoris; I10 Essential (primary) hypertension; Z79.02 Long term (current) use of antithrombotics/antiplatelets; Z79.82 Long term (current) use of aspirin; Z79.83 Long term (current) use of bisphosphonates; Z79.899 Other long term (current) drug therapy; Z83.71 Family history of colonic polyps
CPT/HCPCS: 45380; 88305; J7120; J2405

== ENCOUNTER → 2023-10-09 | Outpatient (CLI) | payer MEDICARE, OTHER, SELFPAY ==
[2020-10-23 10:09] VITALS: BMI 30.7
[2023-10-09 12:09] LABS: Absolute Lymphocyte Count 1.11 X10^3/uL (0.83-4.51); Absolute Neutrophil Count 4.3 X10^3/uL (2.0-7.7); Basophil# 0.06 X10^3/uL; Eosinophil# 0.12 X10^3/uL; Hematocrit 43.6 % (37-47); Hemoglobin 13.9 g/dL (12.0-15.0); Lymphocyte # 1.11 X10^3/ul (0.83-4.51); Lymphocyte % 18.4 % (19-41); Mean Corp Hgb Conc 31.9 g/dL (32-36); Mean Corpuscular Hgb 30.8 pg (27.0-32.0); Mean Corpuscular Volume 96.5 fL (81-99); Mean Platelet Vol. 10.7 fl (6.2-12.0); Monocyte# 0.45 X10^3/uL; Monocyte% 7.5 % (0-10); NRBC Flagged by Analyzer 0 % (0-5); Neutrophil # 4.28 X10^3/uL (2.7-7.7); Neutrophil % 70.9 % (47-70); Platelet Count 256 K/mm3 (150-450); RBC Distribution Width CV 13.2 % (11.6-14.6); RBC Distribution Width SD 47.1 fl (35.1-43.9); Red Blood Count 4.52 M/mm3 (4.2-5.4)
[2023-10-09 13:00] LABS: ALB/GLOB Ratio 1.2 RATIO (0.9-2.4); AST(SGOT) 20 U/L (15-37); Alanine Aminotransfer ALT/SGPT 23 U/L (13-56); Albumin, Serum 3.7 g/dL (3.2-5.0); Alkaline Phosphatase 44 U/L (45-117); Anion Gap 3 (5-15); BUN 13 mg/dL (7-18); BUN/Creat Ratio 18.4 RATIO (10-20); Chloride 110 mmol/L (98-107); Cholesterol 138 mg/dL (200); Creatinine, Serum 0.71 mg/dL (0.55-1.02); EST Glomerular Filtration Rate 86 mL/min (>60); Est Glom Filt Rate - Afr Amer 103 mL/min (>60); Globulin 3.2 g/dL (2.2-4.2); Glucose 90 mg/dL (74-106); High Density Lipoprotein 62 mg/dL; Potassium 4.6 mmol/L (3.5-5.1); Protein, Total 6.9 g/dL (6.4-8.2); Sodium Level 141 mmol/L (136-145); Triglycerides 74 mg/dL; Very Low Density Lipoprotein 15 mg/dL (5-40)
[2023-10-09 19:29] LABS: Vitamin D,25 Hydroxy 57.4 ng/mL
== END | disposition home or self-care (01) ==
LOC: BIMLAB 10:10
PROVIDERS: PCP Internal Medicine; Visit Provider Internal Medicine
DX: I10 Essential (primary) hypertension (principal); M85.80 Other specified disorders of bone density and structure, unspecified site; I25.10 Atherosclerotic heart disease of native coronary artery without angina pectoris
CPT/HCPCS: 36415; 80053; 80061; 82306; 85025

== ENCOUNTER → 2023-10-10 | Outpatient (CLI) | payer MEDICARE, OTHER, SELFPAY ==
[2020-10-23 10:09] VITALS: BMI 30.7
--- NOTE | 2023-10-10 09:11 | RAD_ITS ---
INDICATION: Left Shoulder Pain, numbness/tingling down left arm EXAMINATION/TECHNIQUE: X-RAY - LEFT XR Shoulder Min 2 Views 4 VIEWS COMPARISON: No relevant prior comparison study available FINDINGS: SOFT TISSUES: No soft tissue swelling or gas. No radiopaque foreign body. BONES/JOINTS: No acute fracture or subluxation.. Normal alignment. Large degenerative spur of the inferior medial aspect of the humeral head. No sclerotic or destructive changes observed. RAD/Shoulder min 2 Views IMPRESSION: Degenerative arthrosis of the glenohumeral joint. Electronically Signed: Rolf Waldron MD at 9:38 EDT ,
--- NOTE | 2023-10-10 09:11 | RAD_ITS ---
INDICATION: Radiculopathy EXAMINATION/TECHNIQUE: X-RAY - XR Spine Cervical 2 or 3 Views COMPARISON: No relevant prior comparison study available FINDINGS: VERTEBRAE: Preserved vertebral body height. No fracture. No spondylolisthesis. Preservation of the normal cervical lordosis. No significant facet arthropathy. DISCS: Narrowing of C5-C6 disc space and to lesser extent C4-C5. Endplate spondylosis at C4-C5 and C5-C6. NECK SOFT TISSUES: No prevertebral soft tissue widening. LUNG APICES: Clear. RAD/Cerv Spine 2 or 3 Views IMPRESSION: Degenerative changes of the cervical spine as described above.. Electronically Signed: Rolf Waldron MD at 9:43 EDT ,
--- NOTE | 2023-10-10 09:27 | BI_ITS ---
MAMMOGRAPHY - BILATERAL SCREENING REASON FOR EXAM: Female, 73 years old. Routine annual screening examination. PERTINENT HISTORY: Non-contributory. TECHNIQUE: Digital bilateral breast veronica (3D mammographic acquisition) in the CC and MLO projections. 2-D mediolateral oblique (MLO) and craniocaudad (CC) views of both breasts were obtained. CAD: Full Field Digital Mammography with Computer Added Detection was performed. COMPARISON: Comparison is made with prior study September 28, 2022 and April 14, 2021. FINDINGS: Breast Composition: There are scattered areas of fibroglandular density. There are no dominant masses or suspicious calcifications. No other significant abnormalities are identified. There has been no significant change since the prior study. BI/SCRN MAMM (CAD)W/VERONICA BILAT IMPRESSION: Stable bilateral screening mammogram. Yearly follow-up mammogram recommended. (A) ASSESSMENT CATEGORY: BIRADS Category 1: Negative. A letter regarding these results will be sent to the patient by the facility within 30 days. Approximately 10% of breast cancers are not detected by mammography. A normal mammogram should not delay biopsy of a clinically suspicious abnormality. [id number] Electronically Signed: Amrik Dhillon MD at 12:26 EDT ,
--- NOTE | 2023-10-10 09:30 | BD_ITS ---
STUDY: DUAL ENERGY X-RAY ABSORPTIOMETRY / DXA REASON FOR EXAM: Female, 73 years old. Osteopenia TECHNIQUE: Bone Mineral Density (BMD) measurements of lumbar spine and bilateral hips were obtained. COMPARISON: Comparison is made with prior study dated April 14, 2021. FINDINGS: Lumbar Spine (L1-L4): g/cm2 (0.813) / T-score (-2.2) / Z-score (0.2) Findings are suggestive of osteopenia with a high fracture risk. Left Femur Total: g/cm2 (0.687) / T-score (-2.1) / Z-score (-0.3) Left Femoral Neck: g/cm2 (0.516) / T-score (-3.0) / Z-score (-0.9) Right Femur Total: g/cm2 (0.849) / T-score (-0.8) / Z-score (1.0) Right Femoral Neck: g/cm2 (0.693) / T-score (-1.4) / Z-score (0.7) The T-Scores on the most recent prior examination were: Lumbar Spine (L1-L4): There has been improvement of bone density since the previous examination. Left Femur Total: which represents an improvement of 0.7%. Right Femur Total: which represents an improvement of . BD/Dexa Bone Density Study IMPRESSION: The patient is considered osteopenic as outlined below according to World [employer] (WHO) criteria with a high fracture risk. There has been improvement of bone density since the previous examination. Reference Information: The T-score is the number of standard deviations above or below the standard which is normal for young adults at their peak bone mineral density. The World Health Organization (WHO) interprets the T-scores as follows: Above -1 Normal bone density Between -1 and -2.5 Osteopenia Equal to / or below -2.5 Osteoporosis As a practical clinical guideline, osteopenia may be graded as follows: Mild -1 through -1.5 Moderate -1.6 through -2.0 Severe -2.1 through -2.4 The Z-score is the number of standard deviations above or below age-matched controls. A Z-score of less than -1.5 would be considered abnormal. References: 1. NIH Osteoporosis and Related Bone Diseases www osteo.org 2. International Society for Clinical Densitometry www iscd.org 3. National Osteoporosis Foundation www nof.org Electronically Signed: Amrik Dhillon MD at 15:32 EDT ,
== END | disposition home or self-care (01) ==
PROVIDERS: PCP Internal Medicine; Referring Provider Internal Medicine; Visit Provider Internal Medicine
DX: Z12.31 Encounter for screening mammogram for malignant neoplasm of breast (principal); M85.89 Other specified disorders of bone density and structure, multiple sites; M25.512 Pain in left shoulder; M54.12 Radiculopathy, cervical region
CPT/HCPCS: 72040; 73030; 77063; 77067; 77080

== ENCOUNTER 2023-11-06 11:30 | Outpatient (RCR) | payer MEDICARE, OTHER, SELFPAY ==
[2020-10-23 10:09] VITALS: BMI 30.7
--- NOTE | 2023-10-20 09:59 | HP.PTEVAL_ITS ---
Patient's Visit Information Visit Information Visit Information: KING BLANCO is a 73 year old F referred to Physical Therapy by Dr. Skip Lugo MD with a diagnosis of L shoulder pain and cervical radicu. Date of Evaluation: 10/20/23 Physical Therapist: JAKUB Pryor Visit Plan Frequency: 2x /Week Duration: 6 Weeks Plan: 2X/ week for 6 weeks for L shoulder PROM/AAROM/AROM and progressing to scapular/postural and RC strength with HEP. Pt will try her wrist cock up splint and see if it helps with her N&T in her hand when doing repetitive things with her L hand HEP: supine wand flex, standing wand flex, and standing wand IR Subjective Subjective: This is nothing new. She cleaned for 29 years. It is always her L side of her body. Sometimes her L shoulder would tingle and she could take Tylenol and be ok. It gradually has gotten worse. She does not want to live on Tylenol. She has pain from the L side of her neck down to her fingers. She also broke that collar bone. They did an x-ray of her neck and it showed some DDD of C4/C5 and spondylosis of C4/C5 and C5/C6. 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 She can not lay on the L side of her shoulder. She has a wrist splint at home as she has had some issues with her wrist and hands in the past and she will see if that helps some of the tingling in her L hand. Pain L shoulder pain: Pain Intensity (Out of 10): 5 L wrist pain: Pain Intensity (Out of 10): 0 Neck pain: Pain Intensity (Out of 10): 0 Objective Objective: R handed: R 39# and L 36# Bicep relflex B 2+/3 UE AROM: R shoulder flex 141 and L 112 R shoulder ABD 175 and L 124 R shoulder IR T10 and L L1 R shoulder ER 39 and L 31 UE MMT R shoulder Flex 4.1 and L 3.1 R shoulder ABD 4 and L 3.7 R shoulder ER 5.9 and L 4.7 C-spine AROM: flex 100%, ext 50%, SB B 50%, Rot R 50 and L 75 PROM L shoulder: Tight at end ranges flex/ABD Does loosen up the more that she did. Balance/Special Test Scores Quick DASH Score: 40.9075 Goals Goal 1:: I HEP Goal Time Frame: 6-8 Weeks Goal 2:: Increase L shoulder AROM (at the time of the eval: R shoulder flex 141 and L 112 R shoulder ABD 175 and L 124 R shoulder IR T10 and L L1 R shoulder ER 39 and L 31) Goal Time Frame: 6-8 Weeks Goal 3:: Increase L shoulder MMT( at the time of the eval: UE MMT R shoulder Flex 4.1 and L 3.1 R shoulder ABD 4 and L 3.7 R shoulder ER 5.9 and L 4.7) Goal Time Frame: 6-8 Weeks Goal 4:: Be able to lay on the L shoulder at night without pain Goal Time Frame: 6-8 Weeks Goal 5:: Sit with more upright posture Goal Time Frame: 6-8 Weeks Rehabilitation Potential Rehabilitation Potential: Good Anticipated Interventions Patient/Client Instruction: Educate patient on: Condition and Plan of Care For the Purpose of:: To decrease pain, To increase ROM, To improve nutrient delivery to tissue, To improve muscle performance and motor function, To improve ability to perform ADL's, To improve performance and independence with ADL's, To improve health of tissue, To decrease soft tissue restriction and To increase flexibility/ROM Therapeutic Exercise to Include: Strength training, Postural training, Flexibilty training, Neuromotor development, Passive ROM, Active ROM and Scapular Strength/Stabilization For the Purpose of:: To decrease pain, To increase ROM, To improve nutrient delivery to tissue, To improve muscle performance and motor function, To improve ability to perform ADL's, To increase tolerance to activity/condition/position, To improve performance and independence with ADL's, To improve gait and locomotor functions, To improve health of tissue, To decrease soft tissue restriction and To increase flexibility/ROM Manual Therapy Techniques to Include: Passive ROM For the Purpose of:: To increase ROM, To improve nutrient delivery to tissue, To improve health of tissue and To increase flexibility/ROM Text: Thank you for the opportunity to evaluate your patient. For Medicare and Medicare HMO plans, please review the plan of care and approve it. It will need to be FAXED BACK to us at [phone] for Medicare purposes. For Medicare only, by signing this I certify the plan of care. Please let me know if there are questions or concerns regarding this plan of care. Physician Signature: Date:
--- NOTE | 2023-11-06 11:54 | HP.PTDCSUM ---
Discharge Summary D/C summary: It has been my pleasure to treat KING BLANCO referred by Dr. Skip Lugo MD, with the diagnosis of L shoulder pain and cervical radicu for a total of 6 visit(s). Discharge Date: 11/06/23 Please see the following information for a summary of their discharge status. Subjective Subjective: Pt is feeling much better overall. Sometimes when she reaches back too far she will have a little pain. Her normal activities are fine. She is doing her HEP and is moving up the bands as well. Pain L shoulder pain: Pain Intensity (Out of 10): 0 L wrist pain: Pain Intensity (Out of 10): 0 Neck pain: Pain Intensity (Out of 10): 0 Overall Improvement % Improvement: 96 Objective Objective/Function: R shoulder flex 141 and L 151 R shoulder ABD 175 and L 153 R shoulder IR T10 and L T12 R shoulder ER 39 and L 59 UE MMT R shoulder Flex 4.1 and L 12.1 R shoulder ABD 4 and L 8.9 R shoulder ER 5.9 and L 12 Goals Goal 1:: I HEP Goal Progress: Goal Met Goal 2:: Increase L shoulder AROM (at the time of the eval: R shoulder flex 141 and L 112 R shoulder ABD 175 and L 124 R shoulder IR T10 and L L1 R shoulder ER 39 and L 31) Goal Progress: Goal Met Goal 3:: Increase L shoulder MMT( at the time of the eval: UE MMT R shoulder Flex 4.1 and L 3.1 R shoulder ABD 4 and L 3.7 R shoulder ER 5.9 and L 4.7) Goal Progress: Goal Met Goal 4:: Be able to lay on the L shoulder at night without pain Goal Progress: Goal Met Goal 5:: Sit with more upright posture Goal Progress: Goal Met Plan Plan: DC PT to HEP D/C Information Discharge Comments: DCPT to HEP d/c sentence: If there are questions or concerns regarding this patient's physical therapy, please feel free to call me at [phone]. Thank you for the referral of this patient. Sincerely, Daja Lilly, MPT Balance/Gait/Functional tests Balance/Special Test Scores Quick DASH Score: 20.4525 Improvement % Improvement: 96
== END 2023-11-06 19:00 | disposition home or self-care (01) ==
LOC: PT 11:30
PROVIDERS: PCP Internal Medicine; Referring Provider Internal Medicine; Visit Provider Internal Medicine
DX: M25.512 Pain in left shoulder (principal); M54.12 Radiculopathy, cervical region
CPT/HCPCS: 97110; 97140; 97162; 97530

== ENCOUNTER → 2024-10-09 | Outpatient (CLI) | payer MEDICARE, OTHER, SELFPAY ==
[2020-10-23 10:09] VITALS: BMI 30.7
[2024-10-09 12:20] LABS: Absolute Lymphocyte Count 1.02 X10^3/uL (0.83-4.51); Absolute Neutrophil Count 3.6 X10^3/uL (2.0-7.7); Basophil# 0.05 X10^3/uL; Basophil% 0.9 % (0-1); Eosinophil# 0.11 X10^3/uL; Eosinophils% 2.1 % (0-5); Hematocrit 43.6 % (37-47); Hemoglobin 13.8 g/dL (12.0-15.0); Lymphocyte # 1.02 X10^3/ul (0.83-4.51); Lymphocyte % 19.2 % (19-41); Mean Corp Hgb Conc 31.7 g/dL (32-36); Mean Corpuscular Hgb 30.8 pg (27.0-32.0); Mean Corpuscular Volume 97.3 fL (81-99); Mean Platelet Vol. 11.2 fl (6.2-12.0); Monocyte# 0.51 X10^3/uL; Monocyte% 9.6 % (0-10); NRBC Flagged by Analyzer 0 % (0-5); Neutrophil # 3.59 X10^3/uL (2.7-7.7); Neutrophil % 67.6 % (47-70); Platelet Count 266 K/mm3 (150-450); RBC Distribution Width CV 13.2 % (11.6-14.6); RBC Distribution Width SD 47.4 fl (35.1-43.9); Red Blood Count 4.48 M/mm3 (4.2-5.4); White Blood Count 5.3 K/mm3 (4.4-11.0)
[2024-10-09 13:34] LABS: ALB/GLOB Ratio 1.7 RATIO (0.9-2.4); AST(SGOT) 25 U/L (<=31); Alanine Aminotransfer ALT/SGPT 19 U/L (<=34); Albumin, Serum 4.4 g/dL (3.4-4.8); Alkaline Phosphatase 51 U/L (35-104); Anion Gap 11 (5-15); BUN 14 mg/dL (4-19); BUN/Creat Ratio 17.3 RATIO (10-20); Carbon Dioxide 27.3 mmol/L (21.0-32.0); Chloride 105 mmol/L (98-108); Cholesterol 138 mg/dL (<=200); Creatinine, Serum 0.79 mg/dL (0.70-1.20); EST Glomerular Filtration Rate 78 (>60); Globulin 2.7 g/dL (2.2-4.2); Glucose 91 mg/dL (70-99); High Density Lipoprotein 50 mg/dL; Low Density Lipoprotein Calc. 73 mg/dL; Potassium 4.6 mmol/L (3.3-5.1); Protein, Total 7.1 g/dL (5.9-8.4); Sodium Level 144 mmol/L (133-145); Triglycerides 80 mg/dL; Very Low Density Lipoprotein 16 mg/dL (5-40); Vitamin D,25 Hydroxy 50.8 ng/mL (30-100); cholesterol:hdl ratio screen 2.79
== END | disposition home or self-care (01) ==
LOC: BIMLAB 08:05
PROVIDERS: PCP Internal Medicine; Referring Provider Internal Medicine; Visit Provider Internal Medicine
DX: I10 Essential (primary) hypertension (principal); E55.9 Vitamin D deficiency, unspecified
CPT/HCPCS: 36415; 80053; 80061; 82306; 85025

== ENCOUNTER → 2024-10-22 | Outpatient (CLI) | payer MEDICARE, OTHER, SELFPAY ==
[2020-10-23 10:09] VITALS: BMI 30.7
--- NOTE | 2024-10-22 10:45 | BI_ITS ---
EXAM: SCRN MAMM (CAD)W/VERONICA BILAT DATE: 10/22/2024 CLINICAL HISTORY: F, Age 74 y/o , BREAST CANCER SCREENING No family history. BREAST CANCER RISK ASSESSMENT: Not assessed. TECHNIQUE: Bilateral screening digital breast tomosynthesis with 2D and 3D images. Computer aided detection. COMPARISON: Prior exam(s) dated October 10, 2023.. FINDINGS: TISSUE DENSITY: The breast tissue is composed of scattered area of fibroglandular density. Bilateral Breast Mammographic Findings: No significant masses, calcifications or other abnormalities are identified. No suspicious masses, areas of developing architectural distortion, or suspicious calcifications. There has been no significant interval change. BI/SCRN MAMM (CAD)W/VERONICA BILAT IMPRESSION: OVERALL FINAL ASSESSMENT: BIRADS 1 NEGATIVE RECOMMENDATION: Routine annual follow-up in 1 Year A letter with findings and recommendations will be mailed to the patient. Reading Location: [place] [id number]
== END | disposition home or self-care (01) ==
PROVIDERS: PCP Internal Medicine; Referring Provider Internal Medicine; Visit Provider Internal Medicine
DX: Z12.31 Encounter for screening mammogram for malignant neoplasm of breast (principal)
CPT/HCPCS: 77063; 77067